=== PATIENT | female | born 1975 | race Caucasian/White ===

== ENCOUNTER → 2020-04-23 | Outpatient (CLI) | payer BC ==
[~2020-04-23] MED LIST: AZAT50TA20 PO; NORG1TAB8 PO; OMEP40CA45 PO; ZOLP5TAB PO
== END | disposition home or self-care (01) ==
LOC: LAB 09:15
PROVIDERS: ATTEND Registered Nurse
DX: Z01.818 Encounter for other preprocedural examination (principal); Z11.59 Encounter for screening for other viral diseases; K50.90 Crohn's disease, unspecified, without complications
CPT/HCPCS: C9803; U0003; 36415

== ENCOUNTER → 2020-04-27 | Day surgery (SDC) | payer BC, OTHER ==
[~2020-04-27] MED LIST changes: +IPRATRPIUM/ALBUTEROL 0.5/2.5MG 3 ML NEBU. NEB PRN; +IV RINGERS SOLUTION,LACTATED 1,000 ML IV SCH; +MIDAZOLAM HCL PF 2 MG/2 ML VIAL. IV ONE; +ONDANSETRON PF 4 MG/2 ML VIAL. IV PRN; +PROPOFOL 10,000 MCG/ML (20ML) VIAL IV ONE
[2020-04-27 09:41] LABS: U PREG PATIENT NEGATIVE (NEG)
[2020-04-27 10:53] VITALS: BP 133/74
--- NOTE | 2020-04-28 16:07 | PATHOLOGY ---
[facility] Accession Number: [id number] . 01 Material submitted: . small bowel - SMALL BOWEL BX . 01 Clinical history: . None provided . 02 Diagnosis: Small bowel biopsy: - No significant pathologic abnormalities. LBQ 04/28/2020 1047 Local . 02 Comment: Sections of the small bowel biopsy reveal segments of small intestine mucosa containing a few mucosal-associated lymphoid aggregates. The mucosa shows no significant inflammation. There are no granulomas. There is no dysplasia or evidence of malignancy. (JPM/db; 04/28/2020) . 02 Electronically signed: . Robert Jc MD, Pathologist NPI- [id number] . 01 Gross description: . The specimen is received in formalin, labeled "Nereida Rainey, small bowel biopsy". Received is a segment of pale bob soft tissue measuring 0.6 cm in maximum dimensions. The specimen is submitted entirely in cassette A1. (CAA; 04/27/2020) QA/QAC 04/27/2020 1922 Local . 02 Pathologist provided ICD-10: Z12.11 . 02 CPT . 545711 Specimen Comment: A courtesy copy of this report has been sent to [phone] Specimen Comment: [id number] Specimen Comment: Report sent to / DR CROWE Specimen Comment: A duplicate report has been generated due to demographic updates. Performed at: [facility] [address], [place] [id number] MD Wero Juarez MD Phone: [phone] Performed at: [facility] [address] [place], [place] [id number] MD Robert Jc MD Phone: [phone]
== END ==
LOC: EDSEX → SURG 08:35
PROVIDERS: ATTEND Emergency Medicine
DX: K50.90 Crohn's disease, unspecified, without complications (principal); K63.89 Other specified diseases of intestine; D64.9 Anemia, unspecified; Z86.010 Personal history of colon polyps
CPT/HCPCS: 45380; 81025; J2704; J7120; 88305